=== PATIENT | male | born 1965 | race Caucasian/White ===

== ENCOUNTER 2021-11-28 23:02 | Emergency (ER) | payer SELFPAY ==
[~2021-11-28] VITALS: Ht 172.7 cm; Wt 86.0 kg
[2021-11-28 23:11] VITALS: BP 119/74
[2021-11-29] MEDS ORDERED: KETOROLAC 60MG/2ML VIAL IM ONE (04:15)
[2021-11-29] MEDS ORDERED: IBUP-2028 MT (06:26)
== END 2021-11-29 06:47 | disposition home or self-care (01) ==
LOC: ER 23:22
DX: M54.50 Low back pain, unspecified (principal); M25.551 Pain in right hip; I10 Essential (primary) hypertension
CPT/HCPCS: 72100; 73502; 96372; 99284; J1885

== ENCOUNTER 2021-12-03 09:18 | Emergency (ER) | payer OTHER ==
[~2021-12-03] VITALS: Ht 182.9 cm; Wt 95.0 kg
[~2021-12-03 09:18] MED LIST: APIX5TAB PO; ASPI-1497 PO; IBUP-2028 MT; METO-396 PO
[2021-12-03 10:13] LABS: BASOPHILS % 0.2 % (0.0-2.0); EOSINOPHILS % 1.2 % (0.0-5.0); HEMATOCRIT. 40.2 % (42.0-52.0); HEMOGLOBIN. 14.2 g/dL (14.0-18.0); LYMPHOCYTES % 16.2 % (20.0-50.0); MEAN CORPUSCULAR HEMOGLOBIN 32.9 pg (28.0-32.0); MEAN CORPUSCULAR VOLUME 93.3 fL (80.0-94.0); MEAN PLATELET VOLUME 7.2 fl (7.4-10.4); NEUTROPHILS % 75.4 % (40.0-76.0); PLATELET 212 x1000/uL (130-400); RED BLOOD CELL COUNT 4.31 mill/uL (4.7-6.1); RED CELL DISTRIBUTION WIDTH 13.6 % (11.6-14.6)
[2021-12-03 10:13] LABS: BG BASE EXCESS 0.9 mmol/L (-2.0-2.0); BG CARBOXYHEMOGLOBIN 0.5 % (0.5-1.5); BG DEOXYHEMOGLOBIN 4.8 % (0.0-5.0); BG HCO3 ACT 25.5 mmol/L (22.0-26.0); BG METHEMOGLOBIN 0.2 % (0.0-1.5); BG OXYGEN SATURATION 95.2 % (92.0-98.5); BG OXYHEMOGLOBIN 94.5 % (94.0-97.0); BG PCO2 40.5 mmHg (35.0-45.0); BG PH 7.417 (7.350-7.450); BG PO2 78.8 mmHg (75.0-100.0); BG SAMPLE SITE RIGHT RADIAL; BG TOTAL HEMOGLOBIN 14.5 g/dL (12.0-18.0); BG VENT MODE ROOM AIR
[2021-12-03 10:22] LABS: CHLORIDE 103 mEq/L (98-107)
[2021-12-03 10:59] VITALS: BP 126/80
[2021-12-03] MEDS ORDERED: KETOROLAC 15MG/ML VIAL IV ONE (11:00)
== END 2021-12-03 13:13 | disposition home or self-care (01) ==
LOC: ER 09:18
DX: R07.9 Chest pain, unspecified (principal); M54.50 Low back pain, unspecified; I11.9 Hypertensive heart disease without heart failure; I25.10 Atherosclerotic heart disease of native coronary artery without angina pectoris; Z79.01 Long term (current) use of anticoagulants; Z79.82 Long term (current) use of aspirin; Z98.62 Peripheral vascular angioplasty status; Z98.890 Other specified postprocedural states
CPT/HCPCS: 36415; 36600; 71045; 80053; 82375; 82805; 83690; 83880; 84484; 85025; 93005; 96374; 99285; J1885

== ENCOUNTER 2021-12-29 09:35 | Emergency (ER) | payer OTHER ==
[~2021-12-29] VITALS: Ht 182.9 cm; Wt 109.0 kg
[2021-12-29 09:40] VITALS: BP 127/84
[2021-12-29] MEDS ORDERED: HYDROCODONE/ACETAMINOPHEN 5/325MG TABLET PO ONE (10:00)
[2021-12-29] MEDS ORDERED: LIDOCAINE 5% PATCH TOP SCH (10:00)
[2021-12-29] MEDS ORDERED: LIDO700A15 TP (10:44)
[2021-12-29] MEDS ORDERED: ACET-2708 MT (10:44)
[2021-12-29] MEDS ORDERED: BACL-141 MT (10:44)
== END 2021-12-29 11:05 | disposition home or self-care (01) ==
LOC: ER 09:35
DX: M62.838 Other muscle spasm (principal); M62.830 Muscle spasm of back; I11.9 Hypertensive heart disease without heart failure; Z79.82 Long term (current) use of aspirin
CPT/HCPCS: 99283

== ENCOUNTER 2022-08-10 23:08 | Emergency (ER) | payer OTHER ==
[~2022-08-10] VITALS: Ht 182.9 cm; Wt 96.0 kg
[~2022-08-10 23:08] MED LIST changes: +ACET-2708 MT; +BACL-141 MT; +LIDO700A15 TP; +TOPUD PO
[2022-08-10 23:53] VITALS: BP 119/77
[2022-08-11] MEDS ORDERED: KETOROLAC 30MG/ML VIAL IM STA (04:29)
[2022-08-11 05:19] LABS: BASOPHILS % 0.4 % (0.0-2.0); EOSINOPHILS % 1.9 % (0.0-5.0); HEMATOCRIT. 39.6 % (42.0-52.0); HEMOGLOBIN. 13.8 g/dL (14.0-18.0); LYMPHOCYTES % 23.9 % (20.0-50.0); MEAN CORPUSCULAR VOLUME 94.8 fL (80.0-94.0); MONOCYTES % 10.8 % (2.0-8.0); PLATELET 175 x1000/uL (130-400); RED BLOOD CELL COUNT 4.17 mill/uL (4.7-6.1); RED CELL DISTRIBUTION WIDTH 13.4 % (11.6-14.6)
[2022-08-11 05:26] LABS: CHLORIDE 110 mEq/L (98-107)
[2022-08-11 05:55] LABS: CLARITY URINE CLEAR (CLEAR); COLOR URINE YELLOW (YELLOW); KETONES URINE TRACE (NEGATIVE); LEUKOCYTE ESTERASE URINE NEGATIVE (NEGATIVE); NITRITE URINE NEGATIVE (NEGATIVE); OCCULT BLOOD URINE NEGATIVE (NEGATIVE); PROTEIN URINE TRACE (NEGATIVE); SPECIFIC GRAVITY URINE 1.029 (1.005-1.030)
[2022-08-11] MEDS ORDERED: ONDANSETRON 4MG ODT PO ONE (06:00)
[2022-08-11] MEDS ORDERED: ACET-2708 MT (06:17)
[2022-08-11] MEDS ORDERED: GUAI-741 MT (06:17)
== END 2022-08-11 07:10 | disposition home or self-care (01) ==
LOC: ER 08-11 01:16
DX: J06.9 Acute upper respiratory infection, unspecified (principal); J20.9 Acute bronchitis, unspecified; I10 Essential (primary) hypertension; Z88.6 Allergy status to analgesic agent; Z79.899 Other long term (current) drug therapy; Z98.890 Other specified postprocedural states
CPT/HCPCS: 36415; 71045; 80053; 81003; 85025; 96372; 99284; J1885

== ENCOUNTER 2023-11-29 21:04 | Inpatient (IN) | payer OTHER ==
[~2023-11-29] VITALS: Ht 182.9 cm; Wt 98.0 kg
[~2023-11-29 21:04] MED LIST changes: +GUAI-741 MT
[2023-11-29 21:51] LABS: BASOPHILS % 0.7 % (0.0-2.0); EOSINOPHILS % 1.7 % (0.0-5.0); HEMATOCRIT. 42.3 % (42.0-52.0); HEMOGLOBIN. 14.3 g/dL (14.0-18.0); LYMPHOCYTES % 19.7 % (20.0-50.0); MEAN CORPUSCULAR HEMOGLOBIN 32.4 pg (28.0-32.0); MEAN CORPUSCULAR HGB CONC 33.9 g/dL (31.0-37.0); MEAN CORPUSCULAR VOLUME 95.8 fL (80.0-94.0); MEAN PLATELET VOLUME 7.5 fl (7.4-10.4); MONOCYTES % 7.2 % (2.0-8.0); NEUTROPHILS % 70.7 % (40.0-76.0); PLATELET 224 x1000/uL (130-400); RED BLOOD CELL COUNT 4.42 mill/uL (4.7-6.1); RED CELL DISTRIBUTION WIDTH 13.4 % (11.6-14.6); WHITE BLOOD COUNT 11.6 x1000/uL (4.5-11.0)
[2023-11-29 22:08] LABS: ETHANOL BLOOD < 10 mg/dL (<10); TROPONIN I HIGH SENSITIVITY < 4 ng/L (3.0-53)
[2023-11-29] MEDS: SODIUM CHLORIDE 0.9% 1,000 ML IV ONE (22:15)
[2023-11-29] MEDS: DIPHENHYDRAMINE 50MG/ML VIAL IV ONE (22:17)
[2023-11-29] MEDS: METOCLOPRAMIDE HCL 10MG/2ML VIAL IV ONE (22:17)
[2023-11-30 01:19] LABS: CHLORIDE 110 mEq/L (98-107); POTASSIUM 4.2 mEq/L (3.5-5.1); SODIUM 142 mEq/L (136-145)
[2023-11-30 01:20] LABS: CALCIUM 8.8 mg/dL (8.7-10.4); CARBON DIOXIDE 27 mEq/L (21-32)
[2023-11-30 01:25] LABS: GLUCOSE 92 mg/dL (70-105); UREA NITROGEN BLOOD 15 mg/dL (9-23)
[2023-11-30 01:27] LABS: ALANINE AMINOTRANSFERASE 15 IU/L (10-49); ALBUMIN 3.8 g/dL (3.2-4.8); ASPARTATE AMINOTRANSFERASE 15 IU/L (<34); BILIRUBIN TOTAL 0.4 mg/dL (0.1-1.0); PROTEIN TOTAL 5.7 g/dL (6.0-8.3)
[2023-11-30 01:29] LABS: TROPONIN I HIGH SENSITIVITY < 4 ng/L (3.0-53)
[2023-11-30 04:00] VITALS: BP 121/81; PULSE 61; RESP 18; TEMP 36.3918; O2SAT 97
[2023-11-30] MEDS ORDERED: CEFTRIAXONE 1GM/50ML 50 ML IV SCH (08:00)
[2023-11-30] MEDS ORDERED: IPRATROPIUM/ALBUTEROL 0.5-3(2.5)MG/3ML NEB HHN PRN (08:00)
[2023-11-30] MEDS ORDERED: ONDANSETRON HCL 4MG/2ML INJ IV PRN (08:00)
[2023-11-30] MEDS ORDERED: DEXTROSE 50% WATER 50ML SYRINGE IV PRN (08:00)
[2023-11-30] MEDS ORDERED: HYDRALAZINE 20MG/ML VIAL IV PRN (08:15)
[2023-11-30] MEDS ORDERED: NITROGLYCERIN 0.4MG TABLET SL SL PRN (09:15)
[2023-11-30] MEDS: ACETAMINOPHEN 325MG TABLET PO PRN (09:48)
[2023-11-30] MEDS: CEFTRIAXONE 1GM/50ML 50ML IV SCH (09:48)
[2023-11-30] MEDS: APIXABAN 5 MG TABLET PO SCH (09:48)
[2023-11-30 10:02] LABS: CLARITY URINE CLEAR (CLEAR); COLOR URINE YELLOW (YELLOW); GLUCOSE URINE NEGATIVE (NEGATIVE); KETONES URINE NEGATIVE (NEGATIVE); LEUKOCYTE ESTERASE URINE NEGATIVE (NEGATIVE); NITRITE URINE NEGATIVE (NEGATIVE); OCCULT BLOOD URINE NEGATIVE (NEGATIVE); PH URINE 5.5 (4.5-8.0); PROTEIN URINE NEGATIVE (NEGATIVE); SPECIFIC GRAVITY URINE 1.021 (1.005-1.030); UROBILINOGEN URINE 0.2 E.U./dL (0.2-1.0)
[2023-11-30] MEDS: METOPROLOL SUCCINATE 50MG ER TABLET PO SCH (10:13)
[2023-11-30] MEDS: AZITHROMYCIN 500MG/250ML 250 ML IV SCH (10:13)
[2023-11-30 10:32] LABS: BASOPHILS % 0.6 % (0.0-2.0); EOSINOPHILS % 2.7 % (0.0-5.0); HEMATOCRIT. 41.3 % (42.0-52.0); HEMOGLOBIN. 14.1 g/dL (14.0-18.0); LYMPHOCYTES % 29.2 % (20.0-50.0); MEAN CORPUSCULAR HEMOGLOBIN 33.1 pg (28.0-32.0); MEAN CORPUSCULAR HGB CONC 34.2 g/dL (31.0-37.0); MEAN CORPUSCULAR VOLUME 96.9 fL (80.0-94.0); MEAN PLATELET VOLUME 7.4 fl (7.4-10.4); MONOCYTES % 5.3 % (2.0-8.0); NEUTROPHILS % 62.2 % (40.0-76.0); PLATELET 215 x1000/uL (130-400); RED BLOOD CELL COUNT 4.27 mill/uL (4.7-6.1); RED CELL DISTRIBUTION WIDTH 13.7 % (11.6-14.6)
[2023-11-30 10:44] LABS: *AMPHETAMINES SCREEN URINE NEGATIVE (NEGATIVE); *BARBITURATES SCREEN URINE NEGATIVE (NEGATIVE); *BENZODIAZEPINES SCREEN URINE NEGATIVE (NEGATIVE); *COCAINE SCREEN URINE NEGATIVE (NEGATIVE); CANNABINOID URINE SCREEN NEGATIVE (NEGATIVE); ECSTASY MDMA SCREEN URINE NEGATIVE (NEGATIVE); METHADONE URINE SCREEN NEGATIVE (NEGATIVE); OPIATES URINE SCREEN NEGATIVE (NEGATIVE); PHENCYCLIDINE URINE SCREEN NEGATIVE (NEGATIVE)
[2023-11-30] MEDS: BLOOD SUGAR DIAGNOSTIC STRIP TEST SCH (11:45)
[2023-11-30 13:05] LABS: CARBON DIOXIDE 26 mEq/L (21-32); CHLORIDE 110 mEq/L (98-107); SODIUM 143 mEq/L (136-145)
[2023-11-30 13:11] LABS: GLUCOSE 113 mg/dL (70-105); UREA NITROGEN BLOOD 16 mg/dL (9-23)
[2023-11-30 13:13] LABS: PHOSPHORUS 2.5 mg/dL (2.5-4.9)
[2023-11-30] MEDS: MAGNESIUM 1 G PREMIX 100 ML IV SCH (14:51)
[2023-11-30 17:59] LABS: CREATINE KINASE MB FRACTION 1.6 ng/mL (0.5-3.6)
[2023-11-30 18:00] LABS: CREATINE KINASE 50 IU/L (46-171); TROPONIN I HIGH SENSITIVITY < 4 ng/L (3.0-53)
[2023-11-30 20:00] VITALS: BP 98/63; PULSE 94; RESP 18; TEMP 36.78072; O2SAT 95
[2023-11-30] MEDS: FAMOTIDINE 20MG TABLET PO SCH (20:46)
[2023-11-30 21:59] LABS: CREATINE KINASE MB FRACTION 1.2 ng/mL (0.5-3.6)
[2023-11-30 22:00] LABS: CREATINE KINASE 43 IU/L (46-171)
[2023-11-30 22:07] LABS: TROPONIN I HIGH SENSITIVITY < 4 ng/L (3.0-53)
[2023-12-01 01:34] VITALS: BP 118/72; PULSE 61; RESP 20; TEMP 36.6404
[2023-12-01 04:00] VITALS: BP 111/73; PULSE 66; RESP 19; TEMP 36.16956; O2SAT 96
[2023-12-01 06:49] LABS: CALCIUM 9.2 mg/dL (8.7-10.4); CHLORIDE 108 mEq/L (98-107); SODIUM 141 mEq/L (136-145)
[2023-12-01 06:50] LABS: CARBON DIOXIDE 27 mEq/L (21-32)
[2023-12-01 06:55] LABS: CREATININE 1.1 mg/dL (0.6-1.3); GLUCOSE 108 mg/dL (70-105)
[2023-12-01 06:56] LABS: LDL CHOLESTEROL 111 mg/dL (5-100); TRIGLYCERIDE 195 mg/dL (0-150); UREA NITROGEN BLOOD 12 mg/dL (9-23)
[2023-12-01 06:57] LABS: CHOLESTEROL 160 mg/dL (<200)
[2023-12-01 06:58] LABS: HDL CHOLESTEROL 29 mg/dL (>55); T4 FREE 0.78 ng/dL (0.89-1.76); THYROID STIMULATING HORMONE 1.25 uIU/mL (0.55-4.78)
[2023-12-01 06:59] LABS: BASOPHILS % 0.3 % (0.0-2.0); EOSINOPHILS % 2.8 % (0.0-5.0); HEMATOCRIT. 41.2 % (42.0-52.0); HEMOGLOBIN. 13.8 g/dL (14.0-18.0); MEAN CORPUSCULAR HEMOGLOBIN 32.8 pg (28.0-32.0); MEAN CORPUSCULAR HGB CONC 33.6 g/dL (31.0-37.0); MEAN CORPUSCULAR VOLUME 97.4 fL (80.0-94.0); MEAN PLATELET VOLUME 7.8 fl (7.4-10.4); MONOCYTES % 5.5 % (2.0-8.0); NEUTROPHILS % 66.4 % (40.0-76.0); PLATELET 201 x1000/uL (130-400); RED BLOOD CELL COUNT 4.23 mill/uL (4.7-6.1); RED CELL DISTRIBUTION WIDTH 13.7 % (11.6-14.6); WHITE BLOOD COUNT 7.9 x1000/uL (4.5-11.0)
[2023-12-01 07:11] LABS: HEPATITIS B SURFACE ANTIGEN NEGATIVE (Negative)
[2023-12-01 07:33] LABS: HEPATITIS C AB NON REACTIVE (Neg) (Negative)
[2023-12-01 08:00] VITALS: BP 122/87; PULSE 59; RESP 18; TEMP 36.28068; O2SAT 100
[2023-12-01] MEDS: CEFTRIAXONE 1GM/50ML 50ML IV SCH (08:59)
[2023-12-01] MEDS: AZITHROMYCIN 500MG/250ML 250 ML IV SCH (10:16)
[2023-12-01] MEDS ORDERED: ATOR40TA70 MT (11:00)
[2023-12-01 12:00] VITALS: BP 119/73; PULSE 66; RESP 20; TEMP 36.72516; O2SAT 99
[2023-12-01 12:07] VITALS: BP 118/82; PULSE 65; TEMP 97.6; O2SAT 98
[2023-12-01 16:00] VITALS: BP 115/74; PULSE 68; RESP 18; TEMP 36.6696; TEMP 36.66960; O2SAT 100
== END 2023-12-01 17:53 | disposition home or self-care (01) | DRG 310 ==
LOC: ER 21:04 → 5WST 11-30 00:18 → EDBEDREQ 11-30 00:22 → EDBEDREQTM 11-30 00:22 → EDBEDREQDT 11-30 00:22 → 7WST 12-01 01:34
PROVIDERS: ADMIT Internal Medicine; ATTEND Internal Medicine
DX: I48.91 Unspecified atrial fibrillation (principal); I25.10 Atherosclerotic heart disease of native coronary artery without angina pectoris; E78.5 Hyperlipidemia, unspecified; I10 Essential (primary) hypertension; Z79.01 Long term (current) use of anticoagulants; I25.2 Old myocardial infarction; Z95.5 Presence of coronary angioplasty implant and graft; Z79.1 Long term (current) use of non-steroidal anti-inflammatories (NSAID); Z79.899 Other long term (current) drug therapy; Z79.82 Long term (current) use of aspirin
CPT/HCPCS: 36415; 71045; 80048; 80053; 80061; 80305; 80320; 81003; 82550; 82553; 82962; 83036; 83605; 83735; 84100; 84145; 84439; 84443; 84484; 85025; 86705; 87340; 93005; 93970; 99285; J0456; J0696; J1200; J2765; J3475; J7030; G0480